=== PATIENT | female | born 1950 | race Caucasian/White ===

== ENCOUNTER → 2018-01-06 | Day surgery (SDC) | payer MEDICARE ==
[2018-01-05 08:20] VITALS: BMI 30.9
[~2018-01-06] MED LIST: LIDOCAINE 1% 20 ML VIAL (10MG/ML) FOR IV START INTRADERMA ONE; LIDOCAINE 1% INJ 10MG/ML (20 ML MDV) ONE; PROPOFOL 10 MG/ML 20 ML VIAL IV ONE
[2018-01-06 10:38] VITALS: RESP 16; TEMP 97.2
[2018-01-06] MEDS: LACTATED RINGERS 1,000 ML IV SCH ×2 (11:02→11:03)
--- NOTE | 2018-01-06 11:24 | P.PCN ---
Date of Procedure: 01/06/18 Procedure(s) Performed: BRIEF HISTORY: Patient is a 67-year-old pleasant white female, scheduled for an elective colonoscopy as a part of prior history of colon polyps. PROCEDURE PERFORMED: Colonoscopy with snare polypectomy PREOPERATIVE DIAGNOSIS: History of colon polyps. IV sedation per Anesthesia. PROCEDURE: After informed consent was obtained, the patient, was brought into the endoscopy unit. IV sedation was administered by Anesthesia under continuous monitoring. Digital rectal examination was normal. Initially the Olympus CF- 160 flexible video colonoscope was then inserted in the rectum, gradually advanced into the cecum without any difficulty. Careful examination was performed as the scope was gradually being withdrawn. Ileocecal valve and the appendiceal orifice were visualized and appeared normal. Prep was excellent. Mucosa of the cecum, appeared normal. In the ascending colon there was a 56 m sessile polyp removed by snare polypectomy. In the descending colon there was a 1 cm pancreatic polyp removed by snare polypectomy. Rest of the ascending colon, transverse colon, descending colon, sigmoid colon, and rectum appeared normal. Moderate sigmoid diverticulosis seen. Retroflexion was performed in the rectum and grade 2 internal hemorrhoids were seen. The patient tolerated the procedure well. IMPRESSION: 5-6 mm sessile ascending colon polyp status post polypectomy 1 cm pedunculated descending colon polyp status post polypectomy Moderate sigmoid diverticulosis Grade 2 internal hemorrhoids RECOMMENDATIONS: Findings of this examination were discussed with the patient as her family. She was advised to follow with the biopsy results. If the biopsy shows a tubular adenoma, she can have a repeat coloscopy in 3 years
[2018-01-06 11:41] VITALS: BP 124/57; PULSE 57
== END | disposition home or self-care (01) ==
LOC: ORWHC2ENDO 09:27
PROVIDERS: ATTEND Internal Medicine Gastroenterology
DX: D12.2 Benign neoplasm of ascending colon (principal); K63.5 Polyp of colon; K57.30 Diverticulosis of large intestine without perforation or abscess without bleeding; K64.1 Second degree hemorrhoids; Z86.010 Personal history of colon polyps; I10 Essential (primary) hypertension; J45.909 Unspecified asthma, uncomplicated; M19.90 Unspecified osteoarthritis, unspecified site; Z79.899 Other long term (current) drug therapy
CPT/HCPCS: 88305; 45385; J2001; J2704